=== PATIENT | male | born 1950 | race Caucasian/White ===

== ENCOUNTER 2022-03-01 06:06 | Inpatient (IN) ==
[2022-03-01] MEDS ORDERED: NiCARdipine 2.5 MG/10 ML Syringe IVPB ONE (06:08)
[2022-03-01] MEDS ORDERED: *HR* Vasopressin 20 UNIT/ML VIAL ONE (06:08)
[2022-03-01] MEDS ORDERED: DOBUTamine 1,000 MG/250 ML BAG ONE (06:08)
[2022-03-01] MEDS ORDERED: Papaverine 60 MG/2 ML VIAL IVP ONE (06:14)
[2022-03-01] MEDS ORDERED: *HR* Midazolam HCl 5 MG/5 ML VIAL IVP ONE (06:20)
[2022-03-01] MEDS ORDERED: *HR* Propofol 200 MG/20 ML VIAL IVP ONE (06:20)
[2022-03-01] MEDS ORDERED: *HR* FentaNYL (PF) 1,000 MCG/20 ML VIAL ONE (06:20)
[2022-03-01] MEDS ORDERED: *HR* Rocuronium Bromide 50 MG/5 ML VIAL ONE ×3 (06:21→10:56)
[2022-03-01] MEDS ORDERED: *HR* Magnesium Sulfate 1 GM/2 ML VIAL ONE (06:22)
[2022-03-01] MEDS ORDERED: Lidocaine 2% Syringe 100 MG/5 ML ONE (06:22)
[2022-03-01] MEDS ORDERED: Tranexamic Acid 1,000 MG/10 ML VIAL ONE ×2 (06:22→08:02)
[2022-03-01] MEDS ORDERED: Famotidine 20 MG/2 ML VIAL ONE (06:22)
[2022-03-01] MEDS ORDERED: Chlorhexidine Rinse 15 ML MOUTHWASH MM ONE (06:30)
[2022-03-01] MEDS ORDERED: Aspirin Enteric Coated 325 MG Tablet PO ONE (06:31)
[2022-03-01] MEDS ORDERED: Norepinephrine 4 MG in 0.9 % Sodium Chloride 250 ML IVC PRN (07:00)
[2022-03-01] MEDS ORDERED: Buckersberg's Blood Cardioplegia PF ONE (07:00)
[2022-03-01] MEDS ORDERED: del Nido Cardioplegia Solution PF ONE ×2 (07:00)
[2022-03-01] MEDS ORDERED: Heparin 15,000 UNIT in 0.9 % Sodium Chloride 500 ML IR ONE (07:00)
[2022-03-01] MEDS: Ringers Solution, Lactated 1,000 ML IVC SCH (07:13)
[2022-03-01 07:38] LABS: ABG Base Excess -3 mEq/L (-2 to 3); ABG Chloride 97 mEq/L (98-107); ABG Glucose 107 mg/dL (60-95); ABG HCO3 23 mEq/L (21-27); ABG Ionized Calcium 1.22 mmol/L (1.15-1.35); ABG Oxygen Saturation 100 % (95-98); ABG PCO2 45 mmHg (35-45); ABG PH 7.31 pH Units (7.32-7.45); ABG PO2 528 mmHg (85-104); ABG TCO2 24 mEq/L (20-26)
[2022-03-01] MEDS: CeFAZolin Syr 2,000MG/20 ML 2,000 MG/20 ML SYRINGE IVPB ONE ×2 (08:00→12:00)
[2022-03-01 09:00] LABS: ABG Base Excess -2 mEq/L (-2 to 3); ABG Chloride 98 mEq/L (98-107); ABG Glucose 113 mg/dL (60-95); ABG HCO3 23 mEq/L (21-27); ABG Ionized Calcium 1.17 mmol/L (1.15-1.35); ABG Oxygen Saturation 100 % (95-98); ABG PCO2 36 mmHg (35-45); ABG PH 7.41 pH Units (7.32-7.45); ABG PO2 349 mmHg (85-104); ABG TCO2 24 mEq/L (20-26)
[2022-03-01 09:22] LABS: ABG Base Excess -4 mEq/L (-2 to 3); ABG Chloride 94 mEq/L (98-107); ABG Glucose 116 mg/dL (60-95); ABG HCO3 21 mEq/L (21-27); ABG Ionized Calcium 1.02 mmol/L (1.15-1.35); ABG Oxygen Saturation 100 % (95-98); ABG PCO2 37 mmHg (35-45); ABG PH 7.36 pH Units (7.32-7.45); ABG PO2 630 mmHg (85-104); ABG TCO2 22 mEq/L (20-26)
[2022-03-01] MEDS ORDERED: ALBUMIN HUMAN ONE (09:51)
[2022-03-01 09:54] LABS: ABG Base Excess 1 mEq/L (-2 to 3); ABG Chloride 96 mEq/L (98-107); ABG Glucose 129 mg/dL (60-95); ABG HCO3 24 mEq/L (21-27); ABG Ionized Calcium 1.04 mmol/L (1.15-1.35); ABG Oxygen Saturation 100 % (95-98); ABG PCO2 31 mmHg (35-45); ABG PH 7.49 pH Units (7.32-7.45); ABG PO2 458 mmHg (85-104); ABG TCO2 25 mEq/L (20-26)
[2022-03-01] MEDS ORDERED: Acetaminophen 325 MG TABLET PO PRN (09:56)
[2022-03-01] MEDS ORDERED: Naloxone 0.4 MG/ML INJ IVP PRN (09:56)
[2022-03-01] MEDS ORDERED: *HR* Dextrose 50 % in Water (Syg) 50 ML SYRINGE IVP PRN (09:56)
[2022-03-01] MEDS ORDERED: Insulin Regular, Human 100 UNIT/ML IV PRN (09:56)
[2022-03-01] MEDS ORDERED: Ondansetron 4 MG/2 ML VIAL IVP PRN (09:56)
[2022-03-01] MEDS ORDERED: Potassium Chloride 40 MEQ/200 ML BAG IVPB PRN (09:56)
[2022-03-01] MEDS ORDERED: Albuterol 2.5 MG/3 ML NEBULIZER IH PRN (09:56)
[2022-03-01] MEDS ORDERED: Calcium Gluconate 1gm/50mL 1 GM/50 ML BAG IVPB PRN (09:56)
[2022-03-01 10:25] LABS: ABG Base Excess 1 mEq/L (-2 to 3); ABG Chloride 99 mEq/L (98-107); ABG Glucose 152 mg/dL (60-95); ABG HCO3 24 mEq/L (21-27); ABG Ionized Calcium 0.94 mmol/L (1.15-1.35); ABG Oxygen Saturation 100 % (95-98); ABG PCO2 30 mmHg (35-45); ABG PH 7.51 pH Units (7.32-7.45); ABG PO2 566 mmHg (85-104); ABG TCO2 25 mEq/L (20-26)
[2022-03-01] MEDS ORDERED: Protamine Sulfate 250 MG/25 ML VIAL IVP ONE (10:55)
[2022-03-01 10:57] LABS: ABG Base Excess 1 mEq/L (-2 to 3); ABG Chloride 97 mEq/L (98-107); ABG Glucose 167 mg/dL (60-95); ABG HCO3 26 mEq/L (21-27); ABG Ionized Calcium 1.13 mmol/L (1.15-1.35); ABG Oxygen Saturation 100 % (95-98); ABG PCO2 46 mmHg (35-45); ABG PH 7.37 pH Units (7.32-7.45); ABG PO2 583 mmHg (85-104); ABG TCO2 28 mEq/L (20-26)
[2022-03-01] MEDS ORDERED: niCARdipine 20 MG/200 ML MLS IVC ONE (10:58)
[2022-03-01] MEDS: Ipratropium/Albuterol Neb 3 ML IH SCH ×4 (11:13→23:32)
[2022-03-01 11:25] LABS: ABG Base Excess -1 mEq/L (-2 to 3); ABG Chloride 98 mEq/L (98-107); ABG Glucose 159 mg/dL (60-95); ABG HCO3 24 mEq/L (21-27); ABG Ionized Calcium 1.34 mmol/L (1.15-1.35); ABG Oxygen Saturation 100 % (95-98); ABG PCO2 37 mmHg (35-45); ABG PH 7.42 pH Units (7.32-7.45); ABG PO2 540 mmHg (85-104); ABG TCO2 25 mEq/L (20-26)
[2022-03-01 11:56] LABS: ABG Base Excess -2 mEq/L (-2 to 3); ABG Chloride 99 mEq/L (98-107); ABG Glucose 160 mg/dL (60-95); ABG HCO3 22 mEq/L (21-27); ABG Ionized Calcium 1.51 mmol/L (1.15-1.35); ABG Oxygen Saturation 100 % (95-98); ABG PCO2 35 mmHg (35-45); ABG PH 7.42 pH Units (7.32-7.45); ABG PO2 327 mmHg (85-104); ABG TCO2 24 mEq/L (20-26)
[2022-03-01] MEDS: Norepinephrine 4 MG/254 ML IV.SOLN IVC SCH (12:55)
[2022-03-01 13:07] LABS: ABG Base Excess -2 mEq/L (-2 to 3); ABG HCO3 22 mEq/L (21-27); ABG Oxygen Saturation 98 % (95-98); ABG PCO2 32 mmHg (35-45); ABG PH 7.43 pH Units (7.32-7.45); ABG PO2 98 mmHg (85-104); ABG TCO2 23 mEq/L (20-26); Blood Gas VT 500 cc
[2022-03-01 13:15] LABS: Basophils % 0.2 %; Mean Platelet Volume 9.5 fL (9.4-12.4)
[2022-03-01 13:16] LABS: Basophils # 0.1 K/mcL (0.0-0.2); Eosinophils # 0.1 K/mcL (0.0-0.6); Eosinophils % 0.3 %; Hematocrit 28.7 % (37.5-50.1); Hemoglobin 9.9 g/dL (12.9-16.9); Immature Granulocytes % 1.3 % (0-4); Lymphocytes # 0.8 K/mcL (0.6-4.6); Lymphocytes % 3.3 %; Mean Corpuscular HGB Conc 34.5 g/dL (31.6-35.5); Mean Corpuscular Hemoglobin 31.1 pg (28.0-33.3); Mean Corpuscular Volume 90.3 fL (83.0-100.0); Monocytes # 1.4 K/mcL (0.0-1.3); Monocytes % 5.4 %; Neutrophils # 22.8 K/mcL (1.6-8.9); Platelet Count 138 K/mcL (140-400); Red Blood Count 3.18 M/mcL (4.19-5.50); Red Cell Distribution Width 12.1 % (11.5-14.5); Segmented Neutrophils % 89.5 %; White Blood Count 25.5 K/mcL (4.3-11.1)
[2022-03-01 13:22] LABS: INR 1.5; Prothrombin Time 16.2 Seconds (9.4-12.1)
[2022-03-01 13:24] LABS: Activated Partial Thrombo Time 29.3 Seconds (26.0-36.0)
[2022-03-01] MEDS: Albumin Human 5% 12.5 GM/250 ML IV.SOLN IVPB PRN ×4 (13:25→14:10)
[2022-03-01 13:38] LABS: BUN/Creatinine Ratio 19 (6-26); Blood Urea Nitrogen 8 mg/dL (8-23); Calcium 8.5 mg/dL (8.6-10.3); Carbon Dioxide 22 mEq/L (23-29); Chloride 103 mEq/L (98-107); Glucose 160 mg/dL (70-105); Magnesium 2.5 mg/dL (1.6-2.6); Osmolality,Calculated 274 (280-300); Potassium 4.3 mEq/L (3.5-5.1); Sodium 131 mEq/L (136-145)
[2022-03-01 13:45] LABS: Platelet Estimate Normal (Normal)
[2022-03-01] MEDS: *HR* FentaNYL (PF) 100 MCG/2 ML VIAL IVP PRN (14:00)
[2022-03-01] MEDS ORDERED: WATER FOR INJ IVPB ONE ×2 (15:42→16:15)
[2022-03-01] MEDS ORDERED: [UNRECOGNIZED DRUG - OTHER] IVPB ONE (15:42)
[2022-03-01] MEDS ORDERED: HUM PROTHROMBIN CPLX IVPB ONE ×2 (15:42→16:15)
[2022-03-01 15:45] LABS: Hematocrit 21.8 % (37.5-50.1); Hemoglobin 7.9 g/dL (12.9-16.9)
[2022-03-01] MEDS ORDERED: 0.9 % Sodium Chloride 500 ML ONE (15:49)
[2022-03-01 15:51] LABS: ABG Base Excess -2 mEq/L (-2 to 3); ABG Chloride 98 mEq/L (98-107); ABG Glucose 141 mg/dL (60-95); ABG HCO3 22 mEq/L (21-27); ABG Ionized Calcium 1.18 mmol/L (1.15-1.35); ABG Oxygen Saturation 99 % (95-98); ABG PCO2 32 mmHg (35-45); ABG PH 7.44 pH Units (7.32-7.45); ABG PO2 129 mmHg (85-104); ABG TCO2 23 mEq/L (20-26)
[2022-03-01] MEDS ORDERED: Protamine Sulfate 50 MG/5 ML VIAL IVP ONE (15:52)
[2022-03-01 15:53] LABS: INR 1.5; Prothrombin Time 16.8 Seconds (9.4-12.1)
[2022-03-01] MEDS ORDERED: 0.9 % Sodium Chloride 1,500 ML ONE (15:53)
[2022-03-01] MEDS ORDERED: *HR* Heparin 10,000 UNIT/10 ML VIAL IR ONE (15:54)
[2022-03-01] MEDS ORDERED: Heparin 1,000 UNITS/500 mL IV.SOLN IR ONE (15:54)
[2022-03-01] MEDS ORDERED: Sodium Bicarbonate 50 MEQ/50 ML VIAL IVC ONE (15:54)
[2022-03-01] MEDS ORDERED: *HR* Magnesium Sulfate 2 GM/50 ML PIGGYBACK IVPB ONE (15:54)
[2022-03-01] MEDS ORDERED: Mannitol 25% vial 12.5 GM/50 ML VIAL IVPB ONE (15:54)
[2022-03-01] MEDS ORDERED: Tranexamic Acid 1,000 MG/10 ML VIAL IR ONE (15:54)
[2022-03-01] MEDS ORDERED: Albumin Human 25% 25 GM/100 ML IV.SOLN IVPB ONE (15:54)
[2022-03-01] MEDS ORDERED: Lidocaine 2% Syringe 100 MG/5 ML IVP ONE (15:54)
[2022-03-01] MEDS ORDERED: *HR* Phenylephrine 10 MG/ML VIAL IVC ONE (15:54)
[2022-03-01 15:55] LABS: Activated Partial Thrombo Time 33.6 Seconds (26.0-36.0)
[2022-03-01] MEDS ORDERED: Aspirin 81 MG TAB.CHEW PO ONE (16:00)
[2022-03-01] MEDS ORDERED: CeFAZolin 2 GM/120 ML BAG IVPB SCH (16:00)
[2022-03-01] MEDS ORDERED: 0.9 % Sodium Chloride 250 ML ONE (16:10)
[2022-03-01] MEDS ORDERED: [UNRECOGNIZED DRUG - OTHER] IVPB ONE (16:15)
[2022-03-01] MEDS ORDERED: FentaNYL (PF) 1,000 MCG/100 ML IV.SOLN IVC SCH (17:00)
[2022-03-01] MEDS ORDERED: Artificial Tears SOLN 15 ML BOTTLE BOTH EYES PRN (17:00)
[2022-03-01 17:59] LABS: ABG Base Excess 0 mEq/L (-2 to 3); ABG HCO3 24 mEq/L (21-27); ABG Oxygen Saturation 97 % (95-98); ABG PCO2 36 mmHg (35-45); ABG PH 7.43 pH Units (7.32-7.45); ABG PO2 92 mmHg (85-104); ABG TCO2 25 mEq/L (20-26)
[2022-03-01] MEDS: DOBUTamine 1,000 MG/250 ML BAG IVC SCH (18:04)
[2022-03-01] MEDS: niCARdipine 20 MG/200 ML MLS IVC SCH ×3 (18:04→22:16)
[2022-03-01 18:43] LABS: BUN/Creatinine Ratio 20 (6-26); Blood Urea Nitrogen 10 mg/dL (8-23); Carbon Dioxide 25 mEq/L (23-29); Chloride 104 mEq/L (98-107); Glucose 151 mg/dL (70-105); Osmolality,Calculated 278 (280-300); Potassium 3.9 mEq/L (3.5-5.1); Sodium 133 mEq/L (136-145)
[2022-03-01] MEDS: Pantoprazole 40 MG VIAL IVP SCH (18:49)
[2022-03-01] MEDS ORDERED: Artificial Tears SOLN 15 ML BOTTLE BOTH EYES SCH (20:00)
[2022-03-01] MEDS: CeFAZolin 2 GM/120 ML BAG IVPB SCH (20:32)
[2022-03-01] MEDS: Chlorhexidine Rinse 15 ML MOUTHWASH MM SCH (20:33)
[2022-03-01 21:59] LABS: INR 1.1
[2022-03-01 22:00] LABS: ABG Base Excess -1 mEq/L (-2 to 3); ABG HCO3 25 mEq/L (21-27); ABG Oxygen Saturation 95 % (95-98); ABG PCO2 43 mmHg (35-45); ABG PH 7.37 pH Units (7.32-7.45); ABG PO2 77 mmHg (85-104); ABG TCO2 26 mEq/L (20-26); Blood Gas Pressure Support 8 cm H2O
[2022-03-01 22:02] LABS: Activated Partial Thrombo Time 27.1 Seconds (26.0-36.0)
[2022-03-01] MEDS: *HR* OxyCODONE/APAP 5/325 TABLET PO PRN (23:01)
[2022-03-01 23:46] LABS: ABG Base Excess -5 mEq/L (-2 to 3); ABG HCO3 17 mEq/L (21-27); ABG Oxygen Saturation 96 % (95-98); ABG PCO2 25 mmHg (35-45); ABG PH 7.45 pH Units (7.32-7.45); ABG PO2 73 mmHg (85-104); ABG TCO2 18 mEq/L (20-26)
[2022-03-02 00:30] LABS: BUN/Creatinine Ratio 17 (6-26); Blood Urea Nitrogen 9 mg/dL (8-23); Calcium 7.9 mg/dL (8.6-10.3); Carbon Dioxide 20 mEq/L (23-29); Chloride 105 mEq/L (98-107); Glucose 154 mg/dL (70-105); Magnesium 1.8 mg/dL (1.6-2.6); Osmolality,Calculated 278 (280-300); Potassium 3.8 mEq/L (3.5-5.1); Sodium 133 mEq/L (136-145)
[2022-03-02 00:31] LABS: Hematocrit 31.2 % (37.5-50.1)
[2022-03-02 00:33] LABS: Hemoglobin 10.9 g/dL (12.9-16.9)
[2022-03-02] MEDS: *HR* FentaNYL (PF) 100 MCG/2 ML VIAL IVP PRN ×2 (01:06→08:58)
[2022-03-02] MEDS: niCARdipine 20 MG/200 ML MLS IVC SCH ×5 (02:06→20:19)
[2022-03-02] MEDS: Ipratropium/Albuterol Neb 3 ML IH SCH ×6 (03:54→23:54)
[2022-03-02] MEDS: CeFAZolin 2 GM/120 ML BAG IVPB SCH ×3 (03:57→19:53)
[2022-03-02 03:58] LABS: ABG Base Excess -2 mEq/L (-2 to 3); ABG HCO3 22 mEq/L (21-27); ABG Oxygen Saturation 90 % (95-98); ABG PCO2 36 mmHg (35-45); ABG PO2 58 mmHg (85-104); ABG TCO2 23 mEq/L (20-26)
[2022-03-02] MEDS: *HR* OxyCODONE/APAP 5/325 TABLET PO PRN ×4 (04:00→20:15)
[2022-03-02 04:19] LABS: VBG Ionized Calcium 1.08 mmol/L (1.15-1.35)
[2022-03-02 04:21] LABS: Basophils % 0.1 %; Red Blood Count 3.51 M/mcL (4.19-5.50)
[2022-03-02 04:23] LABS: Hematocrit 31.2 % (37.5-50.1); Hemoglobin 10.8 g/dL (12.9-16.9); Immature Granulocytes % 0.5 % (0-4); Immature Platelets 6.2 % (1.1-6.1); Lymphocytes # 0.9 K/mcL (0.6-4.6); Mean Corpuscular HGB Conc 34.6 g/dL (31.6-35.5); Mean Corpuscular Hemoglobin 30.8 pg (28.0-33.3); Mean Corpuscular Volume 88.9 fL (83.0-100.0); Mean Platelet Volume 10.2 fL (9.4-12.4); Monocytes # 1.8 K/mcL (0.0-1.3); Monocytes % 11.9 %; Platelet Count 126 K/mcL (140-400); Red Cell Distribution Width 13.4 % (11.5-14.5); Segmented Neutrophils % 81.5 %; White Blood Count 14.7 K/mcL (4.3-11.1)
[2022-03-02 04:37] LABS: INR 1.1
[2022-03-02 04:40] LABS: Activated Partial Thrombo Time 28.8 Seconds (26.0-36.0)
[2022-03-02] MEDS: Norepinephrine 4 MG/254 ML IV.SOLN IVC SCH (04:40)
[2022-03-02] MEDS: Ringers Solution, Lactated 1,000 ML IVC SCH (04:40)
[2022-03-02 04:46] LABS: BUN/Creatinine Ratio 21 (6-26); Blood Urea Nitrogen 10 mg/dL (8-23); Calcium 8.1 mg/dL (8.6-10.3); Carbon Dioxide 20 mEq/L (23-29); Chloride 106 mEq/L (98-107); Glucose 120 mg/dL (70-105); Magnesium 2.3 mg/dL (1.6-2.6); Osmolality,Calculated 278 (280-300); Potassium 4.5 mEq/L (3.5-5.1); Sodium 134 mEq/L (136-145)
[2022-03-02] MEDS: *HR* Enoxaparin 40 MG/0.4 ML SYRINGE SQ SCH (05:18)
[2022-03-02] MEDS: Chlorhexidine Rinse 15 ML MOUTHWASH MM SCH ×2 (08:59→19:53)
[2022-03-02] MEDS: Pantoprazole 40 MG VIAL IVP SCH (08:59)
[2022-03-02] MEDS: Aspirin Enteric Coated 81 MG Tablet PO SCH (08:59)
[2022-03-02] MEDS: DOBUTamine 1,000 MG/250 ML BAG IVC SCH (10:04)
[2022-03-02] MEDS ORDERED: Albumin 25% 25gram/100mL 25 GM/100 ML IV.SOLN IVPB ONE (10:08)
[2022-03-02] MEDS ORDERED: Bumetanide 1 MG/4 ML VIAL IVP ONE (10:08)
[2022-03-02] MEDS ORDERED: Dextrose Gel 15 GM/37.5 ML TUBE PO PRN ×2 (10:12)
[2022-03-02] MEDS ORDERED: D5% in Water 1,000 ML IVC PRN (10:12)
[2022-03-02] MEDS ORDERED: *HR* Dextrose 50 % in Water (Syg) 50 ML SYRINGE IVP PRN (10:12)
[2022-03-02] MEDS: Insulin LISPRO 300 UNITS/3 ML VIAL SUBQ SCH ×2 (12:45→18:15)
[2022-03-02] MEDS ORDERED: 0.9 % Sodium Chloride 500 ML ONE (19:38)
[2022-03-02] MEDS ORDERED: Insulin LISPRO 300 UNITS/3 ML VIAL SUBQ SCH (21:00)
[2022-03-03] MEDS: niCARdipine 20 MG/200 ML MLS IVC SCH ×2 (00:54→05:05)
[2022-03-03] MEDS: *HR* OxyCODONE/APAP 5/325 TABLET PO PRN ×4 (00:58→18:27)
[2022-03-03] MEDS: CeFAZolin 2 GM/120 ML BAG IVPB SCH ×2 (03:53→11:21)
[2022-03-03] MEDS: Norepinephrine 4 MG/254 ML IV.SOLN IVC SCH (03:53)
[2022-03-03] MEDS: Ipratropium/Albuterol Neb 3 ML IH SCH ×5 (04:26→19:21)
[2022-03-03 04:44] LABS: Basophils % 0.1 %; Hemoglobin 9.5 g/dL (12.9-16.9)
[2022-03-03 04:47] LABS: Hematocrit 28.7 % (37.5-50.1); Immature Granulocytes % 0.8 % (0-4); Immature Platelets 7.8 % (1.1-6.1); Lymphocytes # 1.1 K/mcL (0.6-4.6); Lymphocytes % 7.3 %; Mean Corpuscular HGB Conc 33.1 g/dL (31.6-35.5); Mean Corpuscular Hemoglobin 30.2 pg (28.0-33.3); Mean Corpuscular Volume 91.1 fL (83.0-100.0); Mean Platelet Volume 10.6 fL (9.4-12.4); Monocytes # 1.2 K/mcL (0.0-1.3); Monocytes % 8.3 %; Neutrophils # 12.2 K/mcL (1.6-8.9); Platelet Count 103 K/mcL (140-400); Red Blood Count 3.15 M/mcL (4.19-5.50); Red Cell Distribution Width 13.7 % (11.5-14.5); Segmented Neutrophils % 83.5 %; White Blood Count 14.6 K/mcL (4.3-11.1)
[2022-03-03 05:02] LABS: BUN/Creatinine Ratio 35 (6-26); Blood Urea Nitrogen 17 mg/dL (8-23); Calcium 8.4 mg/dL (8.6-10.3); Carbon Dioxide 24 mEq/L (23-29); Chloride 103 mEq/L (98-107); Glucose 124 mg/dL (70-105); Magnesium 2.2 mg/dL (1.6-2.6); Osmolality,Calculated 277 (280-300); Platelet Estimate Slight Decrease (Normal); Potassium 4.1 mEq/L (3.5-5.1); Sodium 132 mEq/L (136-145)
[2022-03-03] MEDS: *HR* Enoxaparin 40 MG/0.4 ML SYRINGE SQ SCH (05:45)
[2022-03-03] MEDS: Insulin LISPRO 300 UNITS/3 ML VIAL SUBQ SCH ×4 (08:07→20:39)
[2022-03-03] MEDS: Aspirin Enteric Coated 81 MG Tablet PO SCH (08:28)
[2022-03-03] MEDS: Chlorhexidine Rinse 15 ML MOUTHWASH MM SCH ×2 (08:29→20:39)
[2022-03-03] MEDS: Pantoprazole 40 MG VIAL IVP SCH (08:29)
[2022-03-03] MEDS: DOBUTamine 1,000 MG/250 ML BAG IVC SCH (11:17)
[2022-03-03] MEDS ORDERED: Potassium Chloride 40 MEQ/200 ML BAG IVPB PRN (16:33)
[2022-03-03] MEDS ORDERED: Acetaminophen 325 MG TABLET PO PRN (16:33)
[2022-03-03] MEDS ORDERED: Ondansetron 4 MG/2 ML VIAL IVP PRN (16:33)
[2022-03-03] MEDS ORDERED: Albuterol 2.5 MG/3 ML NEBULIZER IH PRN (16:33)
[2022-03-03] MEDS ORDERED: Dextrose Gel 15 GM/37.5 ML TUBE PO PRN ×2 (16:33)
[2022-03-03] MEDS ORDERED: Naloxone 0.4 MG/ML INJ IVP PRN (16:33)
[2022-03-03] MEDS ORDERED: *HR* Dextrose 50 % in Water (Syg) 50 ML SYRINGE IVP PRN (16:33)
[2022-03-03] MEDS ORDERED: D5% in Water 1,000 ML IVC PRN (16:33)
[2022-03-04] MEDS: Ipratropium/Albuterol Neb 3 ML IH SCH ×7 (00:04→23:36)
[2022-03-04] MEDS: *HR* OxyCODONE/APAP 5/325 TABLET PO PRN ×3 (00:33→16:54)
[2022-03-04] MEDS: *HR* Enoxaparin 40 MG/0.4 ML SYRINGE SQ SCH (04:32)
[2022-03-04 05:00] LABS: Hemoglobin 9.4 g/dL (12.9-16.9); Immature Granulocytes % 0.6 % (0-4); Mean Platelet Volume 10.5 fL (9.4-12.4)
[2022-03-04 05:02] LABS: Basophils % 0.2 %; Eosinophils % 0.2 %; Immature Platelets 8.7 % (1.1-6.1); Lymphocytes # 1.1 K/mcL (0.6-4.6); Lymphocytes % 9.9 %; Mean Corpuscular HGB Conc 33.6 g/dL (31.6-35.5); Mean Corpuscular Hemoglobin 31.3 pg (28.0-33.3); Mean Corpuscular Volume 93.3 fL (83.0-100.0); Monocytes # 1.2 K/mcL (0.0-1.3); Monocytes % 10.9 %; Red Cell Distribution Width 13.5 % (11.5-14.5); Segmented Neutrophils % 78.2 %; White Blood Count 11.3 K/mcL (4.3-11.1)
[2022-03-04 05:18] LABS: BUN/Creatinine Ratio 40 (6-26); Blood Urea Nitrogen 21 mg/dL (8-23); Calcium 8.3 mg/dL (8.6-10.3); Carbon Dioxide 23 mEq/L (23-29); Chloride 99 mEq/L (98-107); Glucose 109 mg/dL (70-105); Magnesium 2.2 mg/dL (1.6-2.6); Osmolality,Calculated 272 (280-300); Potassium 3.9 mEq/L (3.5-5.1); Sodium 129 mEq/L (136-145)
[2022-03-04 05:19] LABS: Neutrophils # 8.8 K/mcL (1.6-8.9); Platelet Count 96 K/mcL (140-400)
[2022-03-04] MEDS: Insulin LISPRO 300 UNITS/3 ML VIAL SUBQ SCH ×4 (09:11→19:27)
[2022-03-04] MEDS: Furosemide 40 MG/4 ML VIAL IVP SCH ×2 (09:12→16:54)
[2022-03-04] MEDS: Pantoprazole 40 MG VIAL IVP SCH (09:12)
[2022-03-04] MEDS: Aspirin Enteric Coated 81 MG Tablet PO SCH (09:13)
[2022-03-04] MEDS: amLODIPine 5 MG TABLET PO SCH (09:13)
[2022-03-04] MEDS: Chlorhexidine Rinse 15 ML MOUTHWASH MM SCH ×2 (09:14→20:00)
[2022-03-05 02:39] LABS: Basophils % 0.3 %; Eosinophils # 0.1 K/mcL (0.0-0.6); Hematocrit 27.8 % (37.5-50.1); Hemoglobin 9.6 g/dL (12.9-16.9); Immature Granulocytes % 0.4 % (0-4); Immature Platelets 9.1 % (1.1-6.1); Lymphocytes # 1.2 K/mcL (0.6-4.6); Lymphocytes % 9.8 %; Mean Corpuscular HGB Conc 34.5 g/dL (31.6-35.5); Mean Corpuscular Hemoglobin 31.5 pg (28.0-33.3); Mean Corpuscular Volume 91.1 fL (83.0-100.0); Mean Platelet Volume 10.5 fL (9.4-12.4); Monocytes # 1.3 K/mcL (0.0-1.3); Monocytes % 11.2 %; Platelet Count 125 K/mcL (140-400); Red Blood Count 3.05 M/mcL (4.19-5.50); Red Cell Distribution Width 13.3 % (11.5-14.5); Segmented Neutrophils % 77.3 %; White Blood Count 11.7 K/mcL (4.3-11.1)
[2022-03-05 02:54] LABS: BUN/Creatinine Ratio 33 (6-26); Blood Urea Nitrogen 17 mg/dL (8-23); Calcium 8.3 mg/dL (8.6-10.3); Carbon Dioxide 27 mEq/L (23-29); Chloride 96 mEq/L (98-107); Glucose 84 mg/dL (70-105); Osmolality,Calculated 269 (280-300); Potassium 3.5 mEq/L (3.5-5.1); Sodium 129 mEq/L (136-145)
[2022-03-05] MEDS: Ipratropium/Albuterol Neb 3 ML IH SCH ×6 (03:48→23:01)
[2022-03-05] MEDS: *HR* Enoxaparin 40 MG/0.4 ML SYRINGE SQ SCH (04:55)
[2022-03-05] MEDS: *HR* OxyCODONE/APAP 5/325 TABLET PO PRN ×3 (04:55→20:56)
[2022-03-05] MEDS: Insulin LISPRO 300 UNITS/3 ML VIAL SUBQ SCH ×4 (08:07→19:25)
[2022-03-05] MEDS: Aspirin Enteric Coated 81 MG Tablet PO SCH (08:51)
[2022-03-05] MEDS: amLODIPine 5 MG TABLET PO SCH (08:51)
[2022-03-05] MEDS: Pantoprazole 40 MG VIAL IVP SCH (08:52)
[2022-03-05] MEDS: Furosemide 40 MG/4 ML VIAL IVP SCH ×2 (08:52→18:34)
[2022-03-05] MEDS: Chlorhexidine Rinse 15 ML MOUTHWASH MM SCH ×2 (08:52→20:56)
[2022-03-06] MEDS: Ipratropium/Albuterol Neb 3 ML IH SCH ×5 (03:21→20:27)
[2022-03-06] MEDS: *HR* Enoxaparin 40 MG/0.4 ML SYRINGE SQ SCH (05:22)
[2022-03-06 06:24] LABS: Basophils % 0.2 %; Eosinophils # 0.2 K/mcL (0.0-0.6); Eosinophils % 1.4 %; Hematocrit 30.4 % (37.5-50.1); Hemoglobin 10.2 g/dL (12.9-16.9); Immature Granulocytes % 0.7 % (0-4); Lymphocytes # 0.8 K/mcL (0.6-4.6); Lymphocytes % 6.8 %; Mean Corpuscular HGB Conc 33.6 g/dL (31.6-35.5); Mean Corpuscular Hemoglobin 30.8 pg (28.0-33.3); Mean Corpuscular Volume 91.8 fL (83.0-100.0); Mean Platelet Volume 10.2 fL (9.4-12.4); Monocytes # 1.4 K/mcL (0.0-1.3); Monocytes % 12.2 %; Neutrophils # 9.3 K/mcL (1.6-8.9); Platelet Count 149 K/mcL (140-400); Red Blood Count 3.31 M/mcL (4.19-5.50); Red Cell Distribution Width 13.2 % (11.5-14.5); Segmented Neutrophils % 78.7 %; White Blood Count 11.8 K/mcL (4.3-11.1)
[2022-03-06 06:41] LABS: BUN/Creatinine Ratio 32 (6-26); Blood Urea Nitrogen 15 mg/dL (8-23); Calcium 8.4 mg/dL (8.6-10.3); Carbon Dioxide 30 mEq/L (23-29); Chloride 95 mEq/L (98-107); Glucose 85 mg/dL (70-105); Osmolality,Calculated 270 (280-300); Potassium 3.3 mEq/L (3.5-5.1); Sodium 130 mEq/L (136-145)
[2022-03-06] MEDS: Aspirin Enteric Coated 81 MG Tablet PO SCH (08:30)
[2022-03-06] MEDS: Pantoprazole 40 MG VIAL IVP SCH (08:31)
[2022-03-06] MEDS: amLODIPine 5 MG TABLET PO SCH (08:31)
[2022-03-06] MEDS: Chlorhexidine Rinse 15 ML MOUTHWASH MM SCH ×2 (08:31→19:45)
[2022-03-06] MEDS: Insulin LISPRO 300 UNITS/3 ML VIAL SUBQ SCH ×4 (08:32→19:45)
[2022-03-06] MEDS: Furosemide 40 MG/4 ML VIAL IVP SCH (08:32)
[2022-03-06] MEDS: Furosemide 40 MG TABLET PO SCH (12:17)
[2022-03-07] MEDS: Ipratropium/Albuterol Neb 3 ML IH SCH ×6 (00:52→20:17)
[2022-03-07] MEDS: *HR* Enoxaparin 40 MG/0.4 ML SYRINGE SQ SCH (05:21)
[2022-03-07] MEDS: *HR* OxyCODONE/APAP 5/325 TABLET PO PRN ×2 (07:59→19:32)
[2022-03-07] MEDS: Aspirin Enteric Coated 81 MG Tablet PO SCH (08:27)
[2022-03-07] MEDS: amLODIPine 5 MG TABLET PO SCH (08:27)
[2022-03-07] MEDS: Furosemide 40 MG TABLET PO SCH (08:28)
[2022-03-07] MEDS: Insulin LISPRO 300 UNITS/3 ML VIAL SUBQ SCH ×4 (08:46→19:29)
[2022-03-07] MEDS: Chlorhexidine Rinse 15 ML MOUTHWASH MM SCH ×2 (09:19→19:32)
[2022-03-07 10:10] LABS: Basophils % 0.1 %; Eosinophils # 0.1 K/mcL (0.0-0.6); Eosinophils % 1.1 %; Hematocrit 27.3 % (37.5-50.1); Hemoglobin 9.5 g/dL (12.9-16.9); Immature Granulocytes % 0.6 % (0-4); Lymphocytes # 0.6 K/mcL (0.6-4.6); Mean Corpuscular HGB Conc 34.8 g/dL (31.6-35.5); Mean Corpuscular Hemoglobin 31.3 pg (28.0-33.3); Mean Corpuscular Volume 89.8 fL (83.0-100.0); Mean Platelet Volume 10.7 fL (9.4-12.4); Monocytes # 1.5 K/mcL (0.0-1.3); Monocytes % 15.2 %; Neutrophils # 7.8 K/mcL (1.6-8.9); Platelet Count 170 K/mcL (140-400); Red Blood Count 3.04 M/mcL (4.19-5.50); Red Cell Distribution Width 13.1 % (11.5-14.5); White Blood Count 10.1 K/mcL (4.3-11.1)
[2022-03-07 10:28] LABS: BUN/Creatinine Ratio 26 (6-26); Blood Urea Nitrogen 11 mg/dL (8-23); Calcium 8.1 mg/dL (8.6-10.3); Carbon Dioxide 24 mEq/L (23-29); Chloride 95 mEq/L (98-107); Glucose 122 mg/dL (70-105); Magnesium 1.8 mg/dL (1.6-2.6); Osmolality,Calculated 263 (280-300); Potassium 4.1 mEq/L (3.5-5.1); Sodium 126 mEq/L (136-145)
[2022-03-08] MEDS: Ipratropium/Albuterol Neb 3 ML IH SCH ×5 (00:20→15:27)
[2022-03-08 02:04] LABS: Basophils % 0.3 %; Eosinophils # 0.3 K/mcL (0.0-0.6); Eosinophils % 2.9 %; Hematocrit 27.7 % (37.5-50.1); Hematocrit 27.8 % (37.5-50.1); Hemoglobin 9.4 g/dL (12.9-16.9); Immature Granulocytes % 1.1 % (0-4); Lymphocytes # 1.1 K/mcL (0.6-4.6); Lymphocytes % 12.6 %; Mean Corpuscular HGB Conc 33.8 g/dL (31.6-35.5); Mean Corpuscular HGB Conc 33.9 g/dL (31.6-35.5); Mean Corpuscular Hemoglobin 30.7 pg (28.0-33.3); Mean Corpuscular Volume 90.5 fL (83.0-100.0); Mean Corpuscular Volume 90.8 fL (83.0-100.0); Mean Platelet Volume 10.4 fL (9.4-12.4); Mean Platelet Volume 10.7 fL (9.4-12.4); Monocytes # 1.3 K/mcL (0.0-1.3); Monocytes % 14.5 %; Platelet Count 160 K/mcL (140-400); Platelet Count 163 K/mcL (140-400); Red Blood Count 3.06 M/mcL (4.19-5.50); Segmented Neutrophils % 68.6 %; White Blood Count 8.7 K/mcL (4.3-11.1)
[2022-03-08 02:21] LABS: BUN/Creatinine Ratio 17 (6-26); Blood Urea Nitrogen 9 mg/dL (8-23); Calcium 8.4 mg/dL (8.6-10.3); Carbon Dioxide 27 mEq/L (23-29); Chloride 93 mEq/L (98-107); Glucose 89 mg/dL (70-105); Magnesium 1.8 mg/dL (1.6-2.6); Osmolality,Calculated 260 (280-300); Potassium 3.9 mEq/L (3.5-5.1); Sodium 126 mEq/L (136-145)
[2022-03-08] MEDS: *HR* Enoxaparin 40 MG/0.4 ML SYRINGE SQ SCH (05:21)
[2022-03-08] MEDS: *HR* OxyCODONE/APAP 5/325 TABLET PO PRN (05:25)
[2022-03-08] MEDS: Insulin LISPRO 300 UNITS/3 ML VIAL SUBQ SCH ×2 (07:29→11:11)
[2022-03-08] MEDS: Furosemide 40 MG TABLET PO SCH (08:23)
[2022-03-08] MEDS: Aspirin Enteric Coated 81 MG Tablet PO SCH (08:23)
[2022-03-08] MEDS: Chlorhexidine Rinse 15 ML MOUTHWASH MM SCH (08:24)
[2022-03-08] MEDS: amLODIPine 5 MG TABLET PO SCH (08:24)
[2022-03-08 15:23] LABS: Influenza A PCR Negative (Negative); Influenza B PCR Negative (Negative); Resp. Syncytial Virus PCR Positive (Negative)
[2022-03-08 15:25] LABS: SARS-CoV-2 by PCR (In House) Negative (Negative)
[2022-03-08 15:33] VITALS: BP 106/66; PULSE 98; TEMP 98.3; O2SAT 100
== END 2022-03-08 18:40 | disposition other institution (70) | DRG 219 ==
LOC: SAMDAY 06:06 → ICNU 09:29 → 2NNU 03-04 00:26 → 2NENU 03-08 12:06
PROVIDERS: ADMIT Thoracic Surgery (Cardiothoracic Vascular Surgery); ATTEND Thoracic Surgery (Cardiothoracic Vascular Surgery)

== ENCOUNTER 2022-03-19 12:42 | Inpatient (IN) ==
[2022-03-19] MEDS ORDERED: Ondansetron 4 MG/2 ML VIAL IVP PRN (17:17)
[2022-03-19] MEDS ORDERED: Naloxone 0.4 MG/ML INJ IVP PRN (17:17)
[2022-03-19] MEDS ORDERED: Melatonin 3 MG TABLET PO PRN (17:17)
[2022-03-19] MEDS: Metoprolol XL (24 HR) Succ 50 MG TAB.ER.24H PO SCH (21:13)
[2022-03-20 03:54] LABS: Basophils % 0.3 %; Eosinophils % 0.3 %; Hematocrit 27.3 % (37.5-50.1); Hemoglobin 9.1 g/dL (12.9-16.9); Immature Granulocytes % 0.6 % (0-4); Lymphocytes # 1.7 K/mcL (0.6-4.6); Lymphocytes % 16.6 %; Mean Corpuscular HGB Conc 33.3 g/dL (31.6-35.5); Mean Corpuscular Hemoglobin 29.6 pg (28.0-33.3); Mean Corpuscular Volume 88.9 fL (83.0-100.0); Mean Platelet Volume 10.5 fL (9.4-12.4); Monocytes # 1.1 K/mcL (0.0-1.3); Monocytes % 10.7 %; Neutrophils # 7.4 K/mcL (1.6-8.9); Platelet Count 271 K/mcL (140-400); Red Blood Count 3.07 M/mcL (4.19-5.50); Red Cell Distribution Width 13.5 % (11.5-14.5); Segmented Neutrophils % 71.5 %; White Blood Count 10.3 K/mcL (4.3-11.1)
[2022-03-20 04:17] LABS: BUN/Creatinine Ratio 17 (6-26); Blood Urea Nitrogen 9 mg/dL (8-23); Calcium 8.6 mg/dL (8.6-10.3); Carbon Dioxide 23 mEq/L (23-29); Chloride 100 mEq/L (98-107); Glucose 110 mg/dL (70-105); Magnesium 1.7 mg/dL (1.6-2.6); Osmolality,Calculated 269 (280-300); Sodium 130 mEq/L (136-145)
[2022-03-20] MEDS: Metoprolol XL (24 HR) Succ 50 MG TAB.ER.24H PO SCH ×2 (07:36→21:07)
[2022-03-20] MEDS ORDERED: *HR* Digoxin 0.5 MG/2 ML AMPUL IVP ONE ×2 (09:12→09:13)
[2022-03-20] MEDS: Aspirin Enteric Coated 81 MG Tablet PO SCH (10:05)
[2022-03-20] MEDS: Ipratropium/Albuterol Neb 3 ML IH SCH ×3 (10:18→22:49)
[2022-03-20 10:35] LABS: Alanine Aminotransferase 18 Units/L (7-52); Albumin 3.4 g/dL (3.5-5.7); Albumin/Globulin Ratio 1.8 (1.1-2.2); Alkaline Phosphatase 89 Units/L (34-104); Aspartate Amino Transferase 19 Units/L (13-39); Bilirubin,Direct 0.2 mg/dL (0.0-0.2); Bilirubin,Indirect 0.4 mg/dL (0.0-1.0); Bilirubin,Total 0.6 mg/dL (0.3-1.0); Globulin 1.9 g/dL (2.4-3.5); Total Protein 5.3 g/dL (6.4-8.9)
[2022-03-20 10:48] LABS: Thyroid Stimulating Hormone 1.485 mcIU/mL (0.340-5.600)
[2022-03-20] MEDS ORDERED: Amiodarone Premix 360 MG/200 ML BAG IVC ONE (12:34)
[2022-03-20] MEDS ORDERED: Albuterol 2.5 MG/3 ML NEBULIZER IH PRN (13:23)
[2022-03-20 13:55] LABS: Heparin anti-factor XA UFH < 0.04 IU/mL (0.30-0.70); INR 1.4; Prothrombin Time 16.1 Seconds (9.4-12.1)
[2022-03-20] MEDS: Heparin 25,000UNIT/250ML 1/2NS 25,000 UNIT/250 ML IV.SOLN IVC SCH (14:56)
[2022-03-20] MEDS: *HR* Digoxin 0.5 MG/2 ML AMPUL IVP SCH ×2 (15:24→18:09)
[2022-03-20] MEDS ORDERED: Furosemide 40 MG TABLET PO SCH (17:00)
[2022-03-20] MEDS: Furosemide 40 MG/4 ML VIAL IVP SCH (18:09)
[2022-03-20] MEDS: Amiodarone Premix 360 MG/200 ML BAG IVC SCH (20:09)
[2022-03-20] MEDS ORDERED: *HR* Heparin 5,000 UNIT/ML VIAL IVP PRN ×2 (22:03)
[2022-03-21] MEDS: Ipratropium/Albuterol Neb 3 ML IH SCH ×3 (04:09→15:57)
[2022-03-21 04:49] LABS: Basophils % 0.3 %; Eosinophils % 0.2 %; Immature Granulocytes % 0.7 % (0-4); Lymphocytes # 1.7 K/mcL (0.6-4.6); Lymphocytes % 11.5 %; Mean Corpuscular HGB Conc 33.3 g/dL (31.6-35.5); Mean Corpuscular Hemoglobin 29.3 pg (28.0-33.3); Mean Platelet Volume 10.3 fL (9.4-12.4); Monocytes # 1.3 K/mcL (0.0-1.3); Monocytes % 8.2 %; Platelet Count 280 K/mcL (140-400); Red Blood Count 3.41 M/mcL (4.19-5.50); Red Cell Distribution Width 13.5 % (11.5-14.5); Segmented Neutrophils % 79.1 %; White Blood Count 15.2 K/mcL (4.3-11.1)
[2022-03-21 05:20] LABS: BUN/Creatinine Ratio 15 (6-26); Blood Urea Nitrogen 8 mg/dL (8-23); Calcium 8.5 mg/dL (8.6-10.3); Carbon Dioxide 20 mEq/L (23-29); Chloride 94 mEq/L (98-107); Glucose 206 mg/dL (70-105); Lactate Dehydrogenase 229 Units/L (140-271); Osmolality,Calculated 264 (280-300); Potassium 3.6 mEq/L (3.5-5.1); Sodium 125 mEq/L (136-145); Total Protein 5.8 g/dL (6.4-8.9)
[2022-03-21] MEDS: Amiodarone Premix 360 MG/200 ML BAG IVC SCH ×2 (08:25→20:42)
[2022-03-21] MEDS: Metoprolol XL (24 HR) Succ 50 MG TAB.ER.24H PO SCH ×2 (08:30→20:43)
[2022-03-21] MEDS: Furosemide 40 MG/4 ML VIAL IVP SCH ×2 (08:30→17:09)
[2022-03-21] MEDS: Aspirin Enteric Coated 81 MG Tablet PO SCH (08:31)
[2022-03-21] MEDS ORDERED: Aspirin Enteric Coated 81 MG Tablet PO SCH (09:00)
[2022-03-21] MEDS: Heparin 25,000UNIT/250ML 1/2NS 25,000 UNIT/250 ML IV.SOLN IVC SCH (17:10)
[2022-03-21 20:39] VITALS: BP 124/78; TEMP 98; O2SAT 92
[2022-03-21 21:23] VITALS: PULSE 101
== END 2022-03-21 23:59 | disposition other institution (70) | DRG 291 ==
LOC: 2NNU → SUATTDRO 16:44
PROVIDERS: ADMIT Internal Medicine; ATTEND Internal Medicine